=== PATIENT | male | born 1975 | race Caucasian/White ===

== ENCOUNTER 2019-11-21 19:30 | Outpatient (CLI) | payer BC | END 2019-11-21 19:31 | disposition home or self-care (01) | LOC: SLEEPLAB 19:30 | PROVIDERS: ATTEND Family Medicine | DX: G47.33 Obstructive sleep apnea (adult) (pediatric) (principal); R53.83 Other fatigue; I10 Essential (primary) hypertension; G47.31 Primary central sleep apnea | CPT/HCPCS: 95811 ==

== ENCOUNTER 2021-02-07 14:15 | Outpatient (CLI) | payer BC | END 2021-02-07 14:16 | disposition home or self-care (01) | LOC: SCSRAD 14:15 | PROVIDERS: ATTEND Family Medicine | DX: M53.3 Sacrococcygeal disorders, not elsewhere classified (principal) | CPT/HCPCS: 72220 ==

== ENCOUNTER 2021-08-14 10:43 | Outpatient (CLI) | payer BC | END 2021-08-14 10:44 | disposition home or self-care (01) | LOC: SCSRAD 10:43 | PROVIDERS: ATTEND Internal Medicine Rheumatology | DX: L40.50 Arthropathic psoriasis, unspecified (principal) | CPT/HCPCS: 71046 ==